=== PATIENT | female | born 1995 | race Caucasian/White ===

== ENCOUNTER 2024-07-30 11:49 | Emergency (ER) | payer OTHER ==
[~2024-07-30] VITALS: Ht 175.3 cm; Wt 81.6 kg
[2024-07-30] MEDS ORDERED: KETOROLAC TROMETHAMINE 15 MG/ML VIAL ONE (12:55)
[2024-07-30] MEDS: KETOROLAC TROMETHAMINE 15 MG/ML VIAL IM ONE (13:03)
[2024-07-30] MEDS: BACI/NEOM/POLY B OINT PKT 1 UDPKT PACKET TP ONE (13:04)
[2024-07-30] MEDS ORDERED: IBUP-1955 PO (13:28)
[2024-07-30] MEDS ORDERED: CEPH-570 PO (13:28)
[2024-07-30 13:40] VITALS: BP 124/70; TEMP 98.4; O2SAT 98
== END 2024-07-30 13:40 | disposition home or self-care (01) ==
LOC: ER 12:01
DX: S62.661A Nondisplaced fracture of distal phalanx of left index finger, initial encounter for closed fracture (principal); J45.909 Unspecified asthma, uncomplicated; W23.2XXA Caught, crushed, jammed or pinched between a moving and stationary object, initial encounter; Y93.9 Activity, unspecified; Y92.810 Car as the place of occurrence of the external cause; Y99.8 Other external cause status
CPT/HCPCS: 99283; 29130; 73140; 96372; J1885